=== PATIENT | male | born 2000 | race Caucasian/White ===

== ENCOUNTER 2022-02-25 05:55 | Emergency (ER) | payer OTHER, BC ==
[~2022-02-25] VITALS: Ht 177.8 cm; Wt 77.1 kg
[~2022-02-25 05:55] MED LIST: GUAI100L31
--- NOTE | 2022-02-25 06:13 | NUR ---
BIBS C/O RECTAL BLEEDING X FEW MONTHS. PT IS A/O, VSS, NO ACUTE DISTRESS NOTED.
[2022-02-25 06:50] LABS: BASOPHILS # (AUTO) 0.1 K/uL (0.0-0.2); BASOPHILS % (AUTO) 0.6 % (0.0-2.0); EOSINOPHILS % (AUTO) 3.6 % (0.0-6.0); HEMATOCRIT 48 % (39-51); LYMPHOCYTES # (AUTO) 3.2 K/uL (0.8-4.8); MEAN CORPUSCULAR HGB CONC 34 g/dl (31.0-36.0); MEAN CORPUSCULAR VOLUME 90 fL (80-96); MONOCYTES # (AUTO) 0.6 K/uL (0.1-1.30); MONOCYTES % (AUTO) 6.6 % (2.0-12.0); NEUTROPHILS # (AUTO) 4.4 K/uL (1.8-8.9); NEUTROPHILS % (AUTO) 51.2 % (43.0-81.0); PLATELET COUNT (AUTO) 200 K/uL (150-450); RED BLOOD CELL COUNT(AUTO) 5.33 MIL/uL (4.5-6.0); WHITE BLOOD COUNT (AUTO) 8.5 K/uL (4.3-11.0)
[2022-02-25 07:14] LABS: ALBUMIN 4.2 g/dL (3.4-5.0); BILIRUBIN,TOTAL 0.7 mg/dL (0.2-1.0); CALCIUM, SERUM 8.5 mg/dL (8.5-10.1); POTASSIUM 3.9 mmol/L (3.5-5.1); TOTAL PROTEIN, SERUM 7.3 g/dL (6.4-8.2)
[2022-02-25 08:03] VITALS: BP 112/66
--- NOTE | 2022-02-25 08:03 | NUR ---
Patient discharged to home in stable condition. Written and verbal after care instructions given. Patient verbalizes understanding of instruction.
== END 2022-02-25 08:04 | disposition home or self-care (01) ==
LOC: ER 06:11
DX: K92.1 Melena (principal); Z79.899 Other long term (current) drug therapy
CPT/HCPCS: 36415; 80053-TC; 85025-TC; 85730-TC